=== PATIENT | female | born 1940 | race Caucasian/White ===

== ENCOUNTER 2022-05-22 18:25 | Observation (INO) ==
[2022-05-22 18:50] LABS: Basophils % 0.4 %; Eosinophils # 0.2 K/mcL (0.0-0.6); Hematocrit 40.5 % (35.3-44.9); Hemoglobin 13.9 g/dL (11.5-15.4); Immature Granulocytes % 0.4 % (0-4); Lymphocytes # 1.4 K/mcL (0.6-4.6); Lymphocytes % 18.2 %; Mean Corpuscular HGB Conc 34.3 g/dL (31.6-35.5); Mean Corpuscular Hemoglobin 30.9 pg (28.0-33.3); Mean Platelet Volume 9.4 fL (9.4-12.4); Monocytes # 0.6 K/mcL (0.0-1.3); Monocytes % 8.3 %; Neutrophils # 5.4 K/mcL (1.6-8.9); Platelet Count 319 K/mcL (140-400); Red Cell Distribution Width 13.2 % (11.5-14.5); Segmented Neutrophils % 69.7 %; White Blood Count 7.7 K/mcL (4.3-11.1)
[2022-05-22] MEDS: Nitroglycerin 0.4 MG TAB.SUBL SL PRN ×3 (18:53→19:25)
[2022-05-22 19:05] LABS: Prothrombin Time 11.3 Seconds (9.4-12.1)
[2022-05-22 19:07] LABS: Activated Partial Thrombo Time 27.9 Seconds (26.0-36.0)
[2022-05-22 19:10] LABS: BUN/Creatinine Ratio 16 (6-26); Blood Urea Nitrogen 17 mg/dL (8-23); Calcium 10.6 mg/dL (8.6-10.3); Carbon Dioxide 23 mEq/L (23-29); Chloride 96 mEq/L (98-107); Glucose 249 mg/dL (70-105); Osmolality,Calculated 280 (280-300); Potassium 4.1 mEq/L (3.5-5.1); Sodium 130 mEq/L (136-145); Troponin I < 0.03 ng/mL (< 0.04)
[2022-05-22] MEDS ORDERED: Acetaminophen 325 MG TABLET PO PRN (20:35)
[2022-05-22] MEDS ORDERED: Melatonin 3 MG TABLET PO PRN (20:35)
[2022-05-22] MEDS ORDERED: Ondansetron 4 MG/2 ML VIAL IVP PRN (20:35)
[2022-05-22] MEDS ORDERED: Naloxone 0.4 MG/ML INJ IVP PRN (20:35)
[2022-05-22] MEDS ORDERED: D5% in Water 1,000 ML IVC PRN (20:40)
[2022-05-22] MEDS ORDERED: *HR* Dextrose 50 % in Water (Syg) 50 ML SYRINGE IVP PRN (20:40)
[2022-05-22] MEDS ORDERED: Dextrose Gel 15 GM/37.5 ML TUBE PO PRN ×2 (20:40)
[2022-05-22] MEDS: Insulin LISPRO 300 UNITS/3 ML VIAL SUBQ SCH (23:27)
[2022-05-23 03:04] LABS: Basophils % 0.5 %; Eosinophils # 0.3 K/mcL (0.0-0.6); Eosinophils % 3.8 %; Hematocrit 37.2 % (35.3-44.9); Hemoglobin 12.7 g/dL (11.5-15.4); Immature Granulocytes % 0.3 % (0-4); Lymphocytes # 1.5 K/mcL (0.6-4.6); Lymphocytes % 21.8 %; Mean Corpuscular HGB Conc 34.1 g/dL (31.6-35.5); Mean Corpuscular Hemoglobin 30.8 pg (28.0-33.3); Mean Corpuscular Volume 90.1 fL (83.0-100.0); Mean Platelet Volume 9.3 fL (9.4-12.4); Monocytes # 0.8 K/mcL (0.0-1.3); Monocytes % 11.6 %; Neutrophils # 4.1 K/mcL (1.6-8.9); Platelet Count 308 K/mcL (140-400); Prothrombin Time 11.2 Seconds (9.4-12.1); Red Blood Count 4.13 M/mcL (3.82-4.97); Red Cell Distribution Width 13.2 % (11.5-14.5); White Blood Count 6.7 K/mcL (4.3-11.1)
[2022-05-23 03:27] LABS: Calcium 9.9 mg/dL (8.6-10.3); Chol/HDL Ratio 3.5 (0-4.9); Magnesium 1.7 mg/dL (1.6-2.6); Phosphorous 4.6 mg/dL (2.7-4.5)
[2022-05-23 03:40] LABS: Troponin I 0.21 ng/mL (< 0.04)
[2022-05-23] MEDS ORDERED: *HR* Heparin 5,000 UNIT/ML VIAL IVP PRN ×2 (03:52)
[2022-05-23] MEDS ORDERED: *HR* Heparin 5,000 UNIT/ML VIAL IVP ONE (03:52)
[2022-05-23 04:00] LABS: Estimated Average Glucose 146 mg/dl; Hemoglobin A1C 6.7 %
[2022-05-23] MEDS: Heparin 25,000UNIT/250ML 1/2NS 25,000 UNIT/250 ML IV.SOLN IVC SCH (04:20)
[2022-05-23] MEDS ORDERED: *HR* Enoxaparin 40 MG/0.4 ML SYRINGE SQ SCH (06:00)
[2022-05-23] MEDS ORDERED: carvediloL 6.25 MG TABLET PO SCH ×2 (08:00→09:51)
[2022-05-23] MEDS: Aspirin 81 MG TAB.CHEW PO SCH (08:26)
[2022-05-23] MEDS: Insulin LISPRO 300 UNITS/3 ML VIAL SUBQ SCH ×4 (08:31→20:25)
[2022-05-23] MEDS: lisinopriL 20 MG TABLET PO SCH ×2 (10:32→19:55)
[2022-05-23] MEDS ORDERED: 0.9 % Sodium Chloride 2,000 ML ONE (13:28)
[2022-05-23] MEDS ORDERED: *HR* Heparin 10,000 UNIT/10 ML VIAL ONE (13:28)
[2022-05-23] MEDS ORDERED: Iopamidol - 370 200 ML INFUS..BTL ONE (13:28)
[2022-05-23] MEDS ORDERED: Heparin 1,000 UNITS/500 mL 500 ML ONE (13:28)
[2022-05-23] MEDS ORDERED: Nitroglycerin 1,000 MCG/5 ML VIAL IV ONE (13:28)
[2022-05-23] MEDS ORDERED: *HR* Midazolam HCl 2 MG/2 ML VIAL ONE (14:18)
[2022-05-23] MEDS ORDERED: *HR* FentaNYL (PF) 100 MCG/2 ML VIAL ONE (14:18)
[2022-05-23] MEDS: 0.9 % Sodium Chloride 1,000 ML IVC SCH (16:18)
[2022-05-24] MEDS: 0.9 % Sodium Chloride 1,000 ML IVC SCH ×2 (02:15→13:17)
[2022-05-24 04:06] LABS: Basophils % 0.3 %; Eosinophils # 0.2 K/mcL (0.0-0.6); Eosinophils % 2.5 %; Hematocrit 36.1 % (35.3-44.9); Hemoglobin 12.1 g/dL (11.5-15.4); Immature Granulocytes % 0.3 % (0-4); Lymphocytes % 15.1 %; Mean Corpuscular HGB Conc 33.5 g/dL (31.6-35.5); Mean Corpuscular Hemoglobin 30.9 pg (28.0-33.3); Mean Corpuscular Volume 92.3 fL (83.0-100.0); Mean Platelet Volume 9.5 fL (9.4-12.4); Monocytes # 0.6 K/mcL (0.0-1.3); Monocytes % 9.1 %; Platelet Count 289 K/mcL (140-400); Red Blood Count 3.91 M/mcL (3.82-4.97); Red Cell Distribution Width 13.5 % (11.5-14.5); Segmented Neutrophils % 72.7 %; White Blood Count 6.9 K/mcL (4.3-11.1)
[2022-05-24 04:27] LABS: Calcium 8.6 mg/dL (8.6-10.3); Magnesium 1.6 mg/dL (1.6-2.6); Potassium 3.7 mEq/L (3.5-5.1)
[2022-05-24 07:45] VITALS: TEMP 98
[2022-05-24] MEDS: Insulin LISPRO 300 UNITS/3 ML VIAL SUBQ SCH ×2 (08:12→12:06)
[2022-05-24] MEDS: Aspirin 81 MG TAB.CHEW PO SCH (08:20)
[2022-05-24] MEDS: lisinopriL 20 MG TABLET PO SCH (08:20)
[2022-05-24] MEDS: Heparin 25,000UNIT/250ML 1/2NS 25,000 UNIT/250 ML IV.SOLN IVC SCH (08:48)
[2022-05-24] MEDS ORDERED: Metoprolol XL (24 HR) Succ 25 MG TAB.ER.24H PO SCH ×2 (09:00→21:00)
[2022-05-24] MEDS ORDERED: Iopamidol - 370 500 ML MLS IVP ONE (09:42)
[2022-05-24 12:01] VITALS: BP 160/86; PULSE 68; O2SAT 93
== END 2022-05-24 14:46 | disposition home or self-care (01) ==
LOC: EMEROOARM 18:25 → 3BNU 18:25 → SUATTDRO 19:38 → 3BNU 20:43
PROVIDERS: ADMIT Internal Medicine; ATTEND Internal Medicine

== ENCOUNTER 2022-06-25 06:26 | Inpatient (IN) ==
[~2022-06-25 06:26] MED LIST: CeFAZolin Syr 2,000MG/20 ML 2,000 MG/20 ML SYRINGE IVPB ONE
[2022-06-25] MEDS ORDERED: 0.9 % Sodium Chloride 250 ML ONE (06:41)
[2022-06-25] MEDS ORDERED: D5% in Water 100 ML ONE (06:41)
[2022-06-25] MEDS ORDERED: Vancomycin 1,000 MG VIAL ONE (06:41)
[2022-06-25] MEDS ORDERED: 0.9 % Sodium Chloride 2,000 ML ONE ×2 (06:41→07:03)
[2022-06-25] MEDS ORDERED: Ondansetron 4 MG/2 ML VIAL IVP PRN (07:02)
[2022-06-25] MEDS ORDERED: Protamine Sulfate 50 MG/5 ML VIAL IVP ONE (07:02)
[2022-06-25] MEDS ORDERED: *HR* FentaNYL (PF) 100 MCG/2 ML VIAL IVP PRN (07:02)
[2022-06-25] MEDS ORDERED: *HR* Heparin 10,000 UNIT/10 ML VIAL ONE (07:02)
[2022-06-25] MEDS ORDERED: Heparin 1,000 UNITS/500 mL 1,500 ML ONE (07:03)
[2022-06-25] MEDS ORDERED: Iopamidol - 370 200 ML INFUS..BTL ONE (07:03)
[2022-06-25] MEDS ORDERED: *HR* FentaNYL (PF) 100 MCG/2 ML VIAL ONE (07:08)
[2022-06-25] MEDS ORDERED: Heparin 15,000 UNIT in 0.9 % Sodium Chloride 500 ML IR ONE (07:30)
[2022-06-25] MEDS ORDERED: del Nido Cardioplegia Solution PF ONE ×2 (07:30)
[2022-06-25] MEDS ORDERED: Norepinephrine 4 MG in 0.9 % Sodium Chloride 250 ML IVC PRN (07:30)
[2022-06-25] MEDS ORDERED: Buckersberg's Blood Cardioplegia PF ONE (07:30)
[2022-06-25 08:03] LABS: Calcium 9.1 mg/dL (8.6-10.3); Potassium 3.4 mEq/L (3.5-5.1)
[2022-06-25] MEDS ORDERED: 0.9 % Sodium Chloride 1,000 ML ONE (08:24)
[2022-06-25] MEDS ORDERED: NAPHAZOLINE HCL OP PRN (08:53)
[2022-06-25] MEDS ORDERED: PHENIRAMINE OP PRN (08:53)
[2022-06-25] MEDS ORDERED: NON-FORMULARY MEDICATION 1 EACH EACH (Omega-3/Dha/Epa/Fish Oil [Fish Oil 1,000 Mg Softgel] PO SCH (09:00)
[2022-06-25] MEDS ORDERED: Ipratropium/Albuterol Neb 3 ML IH ONE (09:52)
[2022-06-25] MEDS ORDERED: *HR* Labetalol 20 MG/4 ML SYRINGE IVP PRN (09:52)
[2022-06-25] MEDS ORDERED: *HR* Labetalol 20 MG/4 ML SYRINGE IVP ONE (09:54)
[2022-06-25] MEDS ORDERED: Ipratropium/Albuterol Neb 3 ML ONE (09:54)
[2022-06-25] MEDS ORDERED: *HR* Propofol 500 MG/50 ML BOTTLE IVP ONE (13:14)
[2022-06-25] MEDS: Metoprolol XL (24 HR) Succ 25 MG TAB.ER.24H PO SCH (19:52)
[2022-06-26 02:38] LABS: Prothrombin Time 11.3 Seconds (9.4-12.1)
[2022-06-26 04:37] LABS: Basophils % 0.4 %; Eosinophils # 0.1 K/mcL (0.0-0.6); Hematocrit 35.2 % (35.3-44.9); Hemoglobin 12.1 g/dL (11.5-15.4); Immature Granulocytes % 0.3 % (0-4); Immature Platelets 2.4 % (1.1-6.1); Lymphocytes # 0.8 K/mcL (0.6-4.6); Lymphocytes % 11.8 %; Mean Corpuscular HGB Conc 34.4 g/dL (31.6-35.5); Mean Corpuscular Hemoglobin 30.7 pg (28.0-33.3); Mean Corpuscular Volume 89.3 fL (83.0-100.0); Mean Platelet Volume 9.7 fL (9.4-12.4); Monocytes # 0.8 K/mcL (0.0-1.3); Monocytes % 11.2 %; Neutrophils # 5.1 K/mcL (1.6-8.9); Platelet Count 173 K/mcL (140-400); Red Blood Count 3.94 M/mcL (3.82-4.97); Red Cell Distribution Width 13.4 % (11.5-14.5); Segmented Neutrophils % 74.3 %; White Blood Count 6.9 K/mcL (4.3-11.1)
[2022-06-26] MEDS: Metoprolol XL (24 HR) Succ 25 MG TAB.ER.24H PO SCH (08:23)
[2022-06-26 08:48] LABS: Calcium 9.3 mg/dL (8.6-10.3); Potassium 3.8 mEq/L (3.5-5.1)
[2022-06-26] MEDS ORDERED: Aspirin Enteric Coated 81 MG Tablet PO SCH (09:00)
[2022-06-26] MEDS ORDERED: Multivit/Ca/Min/Fe/FA 1 TAB TABLET PO SCH (09:00)
[2022-06-26 11:24] VITALS: TEMP 98.5
[2022-06-26] MEDS ORDERED: amLODIPine 5 MG TABLET PO SCH (12:00)
[2022-06-26 12:33] VITALS: BP 157/49; PULSE 62; O2SAT 94
== END 2022-06-26 13:15 | disposition home or self-care (01) | DRG 267 ==
LOC: INVDIALAB 06:26 → 2NNU 15:44
PROVIDERS: ADMIT Thoracic Surgery (Cardiothoracic Vascular Surgery); ATTEND Thoracic Surgery (Cardiothoracic Vascular Surgery)